=== PATIENT | male | born 2005 | race Caucasian/White ===

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

== ENCOUNTER 2023-02-05 16:59 | Emergency (ER) | payer OTHER, MEDICAID ==
[~2023-02-05] VITALS: Ht 162.6 cm; Wt 77.1 kg
[~2023-02-05 16:59] MED LIST: ACET-10509 PO; FAMO-90 PO; ONDA-188 PO
[2023-02-05 17:23] VITALS: BP 114/76; PULSE 102; RESP 16; TEMP 98; O2SAT 98
[2023-02-05] MEDS ORDERED: LIDOCAINE MPF 1% 10 MG/ML VIAL INJ ONE (17:45)
[2023-02-05] MEDS ORDERED: CEPH-588 PO (17:54)
[2023-02-05] MEDS ORDERED: IBUP-2213 PO (17:54)
[2023-02-05] MEDS ORDERED: IBUPROFEN 600 MG TAB PO ONE (18:20)
[2023-02-05 18:43] VITALS: BP 98/41; PULSE 112; RESP 18; TEMP 98.7; O2SAT 98
== END 2023-02-05 18:43 | disposition home or self-care (01) ==
LOC: MED 16:59
DX: L05.01 Pilonidal cyst with abscess (principal); K62.89 Other specified diseases of anus and rectum; Z88.0 Allergy status to penicillin; Z79.899 Other long term (current) drug therapy
CPT/HCPCS: 10080; 99283; 99284